=== PATIENT | female | born 1965 | race Caucasian/White ===

== ENCOUNTER → 2016-11-04 | Outpatient (CLI) | payer OTHER ==
[2016-11-04 09:34] LABS: HEMOGLOBIN 13.5 g/dL (12.0-15.5); HGB HCT DIFFERENCE 0.5; MEAN CORPUSCULAR HEMOGLOBIN 28.7 pg (27.0-33.4); MEAN CORPUSCULAR HGB CONC 33.6 g/dL (32.0-36.0); MEAN CORPUSCULAR VOLUME 85 fl (80-97); RED BLOOD COUNT 4.69 10^6/uL (3.72-5.28); RED CELL DISTRIBUTION WIDTH 13.9 % (11.5-14.0); WHITE BLOOD COUNT 8.9 10^3/uL (4.0-10.5)
[2016-11-04 10:12] LABS: ALANINE AMINOTRANSFERASE 30 U/L (9-52); ALBUMIN 4.1 g/dL (3.5-5.0); ALKALINE PHOSPHATASE 94 U/L (38-126); ANION GAP 12 (5-19); ASPARTATE AMINO TRANSFERASE 26 U/L (14-36); BILIRUBIN,TOTAL 0.6 mg/dL (0.2-1.3); BLOOD UREA NITROGEN 11 mg/dL (7-20); CALCIUM 9.8 mg/dL (8.4-10.2); CARBON DIOXIDE 23 mmol/L (22-30); CHLORIDE 107 mmol/L (98-107); CHOLESTEROL 185.81 mg/dL (0-200); CREATININE RESULT 0.52 mg/dL (0.52-1.25); Direct HDL 47 mg/dL (>40); GLUCOSE 187 mg/dL (75-110); POTASSIUM 4.1 mmol/L (3.6-5.0); SODIUM 141.7 mmol/L (137-145); TOTAL PROTEIN 7.1 g/dL (6.3-8.2); TRIGLYCERIDES 149 mg/dL (<150)
[2016-11-04 10:23] LABS: DIRECT LDL 117 mg/dL (<100)
== END ==
LOC: OD 07:45
PROVIDERS: ATTEND Nurse Practitioner Family
DX: E55.9 Vitamin D deficiency, unspecified (principal); E11.9 Type 2 diabetes mellitus without complications; I10 Essential (primary) hypertension; E78.5 Hyperlipidemia, unspecified; E66.9 Obesity, unspecified; R53.83 Other fatigue
CPT/HCPCS: 36415; 80053; 80061; 82306; 83036; 84443; 85027

== ENCOUNTER 2017-04-25 13:19 | Emergency (ER) | payer OTHER ==
[2017-04-25] MEDS ORDERED: NORMAL SALINE 1000 ML 1,000 ML IV ONE (13:46)
--- NOTE | 2017-04-25 13:47 | ER Document Report ---
ED Medical Screen (RME) - General Chief Complaint: Rib Pain Stated Complaint: SHOULDER PAIN Time Seen by Provider: 04/25/17 13:42 TRAVEL OUTSIDE OF THE [place] IN LAST 30 DAYS: No - HPI Patient complains to provider of: Right upper quadrant pain nausea vomiting diarrhea - Related Data Allergies/Adverse Reactions: No Known Allergies Allergy (Verified 04/25/17 13:35) Past Medical History - Past Medical History Cardiac Medical History: Reports: Hx Hypertension Endocrine Medical History: Reports: Hx Diabetes Mellitus Type 2 Renal/ Medical History: Denies: Hx Peritoneal Dialysis Past Surgical History: Reports: Hx Breast Surgery - cyst removed, Hx Hysterectomy - Immunizations Immunizations up to date: Yes Hx Diphtheria, Pertussis, Tetanus Vaccination: Yes Review of Systems - Review of Systems Gastrointestinal: Abdominal pain Physical Exam - Vital signs Vitals: Temp Pulse Resp BP Pulse Ox 98.5 F 80 18 188/106 H 97 04/25/17 13:32 04/25/17 13:32 04/25/17 13:32 04/25/17 13:32 04/25/17 13:32 Interpretation: Normal - General General appearance: Appears well, Alert - HEENT Head: Normocephalic, Atraumatic Eyes: Normal Pupils: PERRL - Respiratory Respiratory status: No respiratory distress Chest status: Nontender Breath sounds: Normal Chest palpation: Normal - Cardiovascular Rhythm: Regular Heart sounds: Normal auscultation Murmur: No - Abdominal Inspection: Normal Distension: No distension Bowel sounds: Normal Tenderness: Tender - r Upper quadrant Organomegaly: No organomegaly - Back Back: Normal, Nontender - Extremities General upper extremity: Normal inspection, Nontender, Normal color, Normal ROM , Normal temperature General lower extremity: Normal inspection, Nontender, Normal color, Normal ROM , Normal temperature, Normal weight bearing. No: Carlos's sign - Neurological Neuro grossly intact: Yes Cognition: Normal Orientation: AAOx4 [place] Coma Scale Eye Opening: Spontaneous Alexis Coma Scale Verbal: Oriented Alexis Coma Scale Motor: Obeys Commands [place] Coma Scale Total: 15 Speech: Normal Motor strength normal: LUE, RUE, LLE, RLE Sensory: Normal - Psychological Associated symptoms: Normal affect, Normal mood - Skin Skin Temperature: Warm Skin Moisture: Dry Skin Color: Normal Course - Re-evaluation Re-evalutation: 04/25/17 13:47 I have greeted and performed a rapid initial assessment of this patient. A comprehensive ED assessment and evaluation of the patient, analysis of test results and completion of the medical decision making process will be conducted by additional ED providers. - Vital Signs Vital signs: Temp Pulse Resp BP Pulse Ox 98.5 F 80 18 188/106 H 97 04/25/17 13:32 04/25/17 13:32 04/25/17 13:32 04/25/17 13:32 04/25/17 13:32
[2017-04-25 14:07] LABS: ABSOLUTE EOSINOPHILS # (AUTO) 0.1 10^3/uL (0.0-0.6); ABSOLUTE LYMPHOCYTES (AUTO) 1.1 10^3/uL (0.5-4.7); ABSOLUTE MONOCYTES (AUTO) 0.6 10^3/uL (0.1-1.4); ABSOLUTE NEUT (AUTO) 3.7 10^3/uL (1.7-8.2); BASOPHILS % (AUTO) 0.4 % (0-2); EOSINOPHILS % (AUTO) 1.6 % (0-6); HEMATOCRIT 42.6 % (36.0-47.0); HEMOGLOBIN 14.6 g/dL (12.0-15.5); HGB HCT DIFFERENCE 1.2; LYMPHOCYTES % (AUTO) 20.2 % (13-45); MEAN CORPUSCULAR HEMOGLOBIN 28.3 pg (27.0-33.4); MEAN CORPUSCULAR HGB CONC 34.3 g/dL (32.0-36.0); MEAN CORPUSCULAR VOLUME 83 fl (80-97); RED BLOOD COUNT 5.14 10^6/uL (3.72-5.28); RED CELL DISTRIBUTION WIDTH 13.6 % (11.5-14.0); SEGMENTED NEUTROPHILS % (AUTO) 66.8 % (42-78); WHITE BLOOD COUNT 5.5 10^3/uL (4.0-10.5)
--- NOTE | 2017-04-25 14:17 | ER Document Report ---
ED GI/ - General Chief Complaint: Rib Pain Stated Complaint: SHOULDER PAIN Time Seen by Provider: 04/25/17 13:42 Mode of Arrival: Ambulatory Information source: Patient Notes: Patient presents complaining of right upper quadrant abdominal pain for the past 3 days. Patient states pain radiates around to the right upper back area. Patient does complain of nausea and some diarrhea. Patient states pain and diarrhea symptoms are worse after eating. Patient denies any urinary symptoms. She denies any measured fever. TRAVEL OUTSIDE OF THE [place] IN LAST 30 DAYS: No - HPI Patient complains to provider of: Abdominal pain. No: Vaginal bleeding, Vaginal discharge, Vomiting Onset: Other - 3 days Timing/Duration: Persistent Quality of pain: Throbbing Pain Level: 4 Location: RUQ, Right flank Vaginal bleeding (Compared to normal period): None Associated symptoms: Diarrhea, Nausea. denies: Chest pain, Dysuria, Fever, Urinary hesitancy, Urinary frequency, Urinary retention, Vaginal discharge, Vomiting Exacerbated by: Food Relieved by: Denies Similar symptoms previously: No Recently seen / treated by doctor: No - Related Data Allergies/Adverse Reactions: No Known Allergies Allergy (Verified 04/25/17 13:35) Past Medical History - General Information source: Patient - Social History Smoking Status: Never Smoker Chew tobacco use (# tins/day): No Frequency of alcohol use: None Drug Abuse: None Occupation: [employer] Family History: Arthritis, CAD, Hyperlipidemia, Hypertension, Malignancy, Thyroid Disfunction - Past Medical History Cardiac Medical History: Reports: Hx Hypertension Endocrine Medical History: Reports: Hx Diabetes Mellitus Type 2 Renal/ Medical History: Denies: Hx Peritoneal Dialysis Past Surgical History: Reports: Hx Breast Surgery - cyst removed, Hx Hysterectomy - Immunizations Immunizations up to date: Yes Hx Diphtheria, Pertussis, Tetanus Vaccination: Yes Review of Systems - Review of Systems Constitutional: No symptoms reported. denies: Fever, Recent illness EENT: No symptoms reported Cardiovascular: No symptoms reported. denies: Chest pain Respiratory: No symptoms reported. denies: Cough, Short of breath Gastrointestinal: Abdominal pain, Diarrhea, Nausea. denies: Vomiting Genitourinary: Flank pain. denies: Dysuria Female Genitourinary: No symptoms reported. denies: Vaginal discharge, Vaginal bleeding Musculoskeletal: Back pain Skin: No symptoms reported Hematologic/Lymphatic: No symptoms reported Neurological/Psychological: No symptoms reported Physical Exam - Vital signs Vitals: Temp Pulse Resp BP Pulse Ox 98.5 F 80 18 188/106 H 97 04/25/17 13:32 04/25/17 13:32 04/25/17 13:32 04/25/17 13:32 04/25/17 13:32 - General General appearance: Appears well, Alert In distress: None - HEENT Head: Normocephalic, Atraumatic Eyes: Normal Nasal: Normal Mouth/Lips: Normal Mucous membranes: Normal Neck: Normal, Supple. No: Lymphadenopathy - Respiratory Respiratory status: No respiratory distress Chest status: Nontender Breath sounds: Normal. No: Rales, Rhonchi, Stridor, Wheezing Chest palpation: Normal - Cardiovascular Rhythm: Regular Heart sounds: S1 appreciated, S2 appreciated Murmur: No - Abdominal Inspection: Morbidly Obese Distension: No distension Bowel sounds: Normal Tenderness: Tender - RUQ Organomegaly: No organomegaly - Back Back: CVA tenderness - right. No: Vertebra tenderness - Extremities General upper extremity: Normal inspection, Nontender, Normal ROM General lower extremity: Normal inspection, Nontender, Normal ROM - Neurological Neuro grossly intact: Yes Cognition: Normal Alexis Coma Scale Eye Opening: Spontaneous Alexis Coma Scale Verbal: Oriented [place] Coma Scale Motor: Obeys Commands Alexis Coma Scale Total: 15 - Psychological Associated symptoms: Normal affect, Normal mood - Skin Skin Temperature: Warm Skin Moisture: Dry Skin Color: Normal Course - Re-evaluation Re-evalutation: 04/25/17 16:[address] Finch regarding patient presentation and exam findings. Does not recommend any additional diagnostic tests at this time. Patient's abdomen continues soft with mild tenderness to right upper quadrant in the right flank area. No guarding, no concern for peritonitis at this time. 04/25/17 16:16 Discussed worsening signs or symptoms that patient should return immediately for. Patient verbalized understanding and agrees with plan of care. Patient advised that she may have a poorly functioning gallbladder that may need additional studies that her primary doctor can order as an outpatient. Patient presents with abdominal pain without signs of peritonitis or other life- threatening or serious etiology. Patient appears stable for discharge and has been instructed to return immediately if the symptoms worsen in any way for reevaluation. The patient has been instructed to return if the symptoms worsen or change in any way. - Vital Signs Vital signs: Temp Pulse Resp BP Pulse Ox 98.5 F 80 18 188/106 H 97 04/25/17 13:32 04/25/17 13:32 04/25/17 13:32 04/25/17 13:32 04/25/17 13:32 - Laboratory Result Diagrams: 04/25/17 13:57 04/25/17 13:57 Laboratory results interpreted by me: 04/25/17 04/25/17 13:51 13:57 Glucose 144 H AST 44 H ALT 53 H Alkaline Phosphatase 128 H Urine Blood MODERATE H Labs- Entire Visit 04/25/17 04/25/17 04/25/17 13:51 13:57 13:57 WBC 5.5 RBC 5.14 Hgb 14.6 Hct 42.6 MCV 83 MCH 28.3 MCHC 34.3 RDW 13.6 Plt Count 190 Seg Neutrophils % 66.8 Lymphocytes % 20.2 Monocytes % 11.0 Eosinophils % 1.6 Basophils % 0.4 Absolute Neutrophils 3.7 Absolute Lymphocytes 1.1 Absolute Monocytes 0.6 Absolute Eosinophils 0.1 Absolute Basophils 0.0 Sodium 139.3 Potassium 3.7 Chloride 105 Carbon Dioxide 23 Anion Gap 11 BUN 10 Creatinine 0.53 Est GFR ( Amer) > 60 Est GFR (Non-Af Amer) > 60 Glucose 144 H Calcium 9.1 Total Bilirubin 0.8 Direct Bilirubin 0.3 Indirect Bilirubin Not Reportable Neonat Total Bilirubin Not Reportable AST 44 H ALT 53 H Alkaline Phosphatase 128 H Total Protein 7.6 Albumin 4.1 Lipase 77.9 Urine Color STRAW Urine Appearance CLEAR Urine pH 6.0 Ur Specific Wever 1.003 Urine Protein NEGATIVE Urine Glucose (UA) NEGATIVE Urine Ketones NEGATIVE Urine Blood MODERATE H Urine Nitrite NEGATIVE Urine Bilirubin NEGATIVE Urine Urobilinogen NEGATIVE Ur Leukocyte Esterase NEGATIVE Urine WBC (Auto) 0 Urine RBC (Auto) 0 Urine Bacteria (Auto) 2+ Squamous Epi Cells Auto 1 Urine Mucus (Auto) RARE Urine Ascorbic Acid NEGATIVE - Diagnostic Test Radiology reviewed: Reports reviewed Discharge - Discharge Clinical Impression: Hx of essential hypertension Abdominal pain Qualifiers: Abdominal location: right upper quadrant Qualified Code(s): R10.11 - Right upper quadrant pain Condition: Stable Disposition: HOME, SELF-CARE Instructions: Abdominal Pain ([facility]), Antinausea Medication ([facility]), Oral Narcotic Medication ([facility]) Additional Instructions: Return immediately for any new or worsening symptoms Followup with your primary care provider, call tomorrow to make a followup appointment Eat a low fat diet. Prescriptions: Hydrocodone/Acetaminophen [[place] 5-325 Tablet] 1 each PO Q4 PRN #8 tablet PRN Reason: Ondansetron HCl [Zofran 4 mg Tablet] 1 - 2 tab PO Q6 PRN #15 tablet PRN Reason: Forms: Elevated Blood Pressure Referrals: CARLO MONTES DE OCA FNP [Primary Care Provider] - Follow up as needed BECKY MARIN NP [COMMUNITY BASED STAFF] - Follow up tomorrow
[2017-04-25 14:19] LABS: ALANINE AMINOTRANSFERASE 53 U/L (9-52); ALBUMIN 4.1 g/dL (3.5-5.0); ALKALINE PHOSPHATASE 128 U/L (38-126); ANION GAP 11 (5-19); ASPARTATE AMINO TRANSFERASE 44 U/L (14-36); BILIRUBIN,DIRECT 0.3 mg/dL (0.0-0.4); BILIRUBIN,TOTAL 0.8 mg/dL (0.2-1.3); BLOOD UREA NITROGEN 10 mg/dL (7-20); CALCIUM 9.1 mg/dL (8.4-10.2); CARBON DIOXIDE 23 mmol/L (22-30); CHLORIDE 105 mmol/L (98-107); CREATININE RESULT 0.53 mg/dL (0.52-1.25); GLUCOSE 144 mg/dL (75-110); LIPASE 77.9 U/L (23-300); POTASSIUM 3.7 mmol/L (3.6-5.0); SODIUM 139.3 mmol/L (137-145); TOTAL PROTEIN 7.6 g/dL (6.3-8.2)
[2017-04-25 15:22] LABS: APPEARANCE,URINE CLEAR; BILIRUBIN,URINE NEGATIVE (NEGATIVE); GLUCOSE, URINE NEGATIVE (NEGATIVE); KETONES,URINE NEGATIVE (NEGATIVE); LEUKOCYTE ESTERASE,URINE NEGATIVE (NEGATIVE); NITRITE,URINE NEGATIVE (NEGATIVE); PROTEIN,URINE NEGATIVE (NEGATIVE); URINE SPECIFIC GRAVITY 1.003; UROBILINOGEN,URINE NEGATIVE mg/dL (<2.0)
--- NOTE | 2017-04-25 15:36 | RADIOLOGY REPORT (SQ) ---
EXAM DESCRIPTION: U/S ABDOMEN LIMITED W/O DOP COMPLETED DATE/TIME: 04/25/2017 3:26 pm REASON FOR STUDY: ruq pain COMPARISON: None. TECHNIQUE: Dynamic and static grayscale images acquired of the abdomen and recorded on PACS. Additio nal selected color Doppler and spectral images recorded. LIMITATIONS: Body habitus limited exam. FINDINGS: PANCREAS: The head of the pancreas was normal. Body and tail were not able to be seen. LIVER: 18.9 cm. Increased echogenicity. LIVER VASCULATURE: Normal directional flow of the main portal vein and hepatic veins. GALLBLADDER: No stones. Normal wall thickness. No pericholecystic fluid. ULTRASOUND-DETECTED MONTGOMERY'S SIGN: Negative. INTRAHEPATIC DUCTS AND COMMON DUCT: Common bile duct is normal at 3 mm. No intrahepatic ductal dilat ation is present. INFERIOR VENA CAVA: Normal flow. AORTA: The proximal aorta is prominent, measuring 37 mm. The midportion the aorta is normal at 2.3 c m. The distal aorta was obscured by gas. RIGHT KIDNEY: Normal size, 13.7 cm. Normal echogenicity. No solid or suspicious masses. No hydroneph rosis. No calcifications. PERITONEAL AND RIGHT PLEURAL SPACE: No ascites or effusions. OTHER: No other significant findings. IMPRESSION: Fatty infiltration of the liver. Prominence of the proximal aorta. No acute abnormalit y TECHNICAL DOCUMENTATION: JOB ID: [id number] [employer]- All Rights Reserved
[2017-04-25] MEDS ORDERED: ACETAMINOPHEN 325 MG TABLET PO ONE (16:13)
[2017-04-25 16:44] VITALS: BP 193/111
== END 2017-04-25 16:43 | disposition home or self-care (01) ==
LOC: ER 13:19
DX: R10.11 Right upper quadrant pain (principal); I10 Essential (primary) hypertension; R07.81 Pleurodynia; M25.519 Pain in unspecified shoulder; R11.0 Nausea; R19.7 Diarrhea, unspecified
CPT/HCPCS: 99284; 96360; 36415; 83690; 85025; 80053; 81001; 76705; J7030

== ENCOUNTER 2017-10-09 18:31 | Emergency (ER) | payer OTHER | END 2017-10-09 22:35 | disposition left against medical advice (07) | LOC: ER 18:31 | DX: Z53.21 Procedure and treatment not carried out due to patient leaving prior to being seen by health care provider (principal); M25.569 Pain in unspecified knee ==

== ENCOUNTER → 2018-02-18 | Outpatient (CLI) | payer OTHER ==
--- NOTE | 2018-02-18 13:08 | RADIOLOGY REPORT (SQ) ---
EXAM DESCRIPTION: U/S ABDOMEN LIMITED W/O DOP COMPLETED DATE/TIME: 02/18/2018 12:21 pm REASON FOR STUDY: RIGHT UPPER QUADRANT PAIN R10.11 RIGHT UPPER QUADRANT PAIN COMPARISON: 2016. TECHNIQUE: Dynamic and static grayscale images acquired of the abdomen and recorded on PACS. Vanessao oscar selected color Doppler and spectral images recorded. LIMITATIONS: None. FINDINGS: PANCREAS: No masses. No peripancreatic edema or fluid collections. LIVER: Echotexture is coarse with increased echogenicity consistent with fatty infiltration. LIVER VASCULATURE: Normal directional flow of the main portal vein and hepatic veins. GALLBLADDER: No stones. Normal wall thickness. No pericholecystic fluid. ULTRASOUND-DETECTED MONTGOMERY'S SIGN: Negative. INTRAHEPATIC DUCTS AND COMMON DUCT: CBD and intrahepatic ducts normal caliber. No filling defects. INFERIOR VENA CAVA: Normal flow. AORTA: Largely not visualized. No gross aneurysm. RIGHT KIDNEY: Normal size. Normal echogenicity. No solid or suspicious masses. No hydronephrosis. No calcifications. PERITONEAL AND RIGHT PLEURAL SPACE: No ascites or effusions. OTHER: No other significant finding. IMPRESSION: FATTY INFILTRATION OF THE LIVER. OTHERWISE NORMAL RIGHT UPPER QUADRANT ULTRASOUND. TECHNICAL DOCUMENTATION: JOB ID: [id number] [employer]- All Rights Reserved Reading location - IP/workstation name: [email or web address]
== END ==
LOC: RAD 11:35
PROVIDERS: ATTEND Physician Assistant
DX: R10.11 Right upper quadrant pain (principal); K76.89 Other specified diseases of liver
CPT/HCPCS: 76705

== ENCOUNTER 2018-07-31 07:31 | Emergency (ER) | payer OTHER ==
[2018-07-31] MEDS ORDERED: ONDANSETRON HCL INJ/PF 4 MG/2 ML SDV IV ONE (08:05)
[2018-07-31] MEDS ORDERED: FENTANYL CITRATE INJ/PF 100 MCG/2 ML AMPUL IV ONE ×3 (08:05→15:45)
[2018-07-31] MEDS ORDERED: KETOROLAC TROMETHAMINE INJ/PF 30 MG/1 ML SDV IV ONE (08:05)
[2018-07-31] MEDS ORDERED: NORMAL SALINE 1000 ML 1,000 ML IV ONE (08:05)
--- NOTE | 2018-07-31 08:11 | ER Document Report ---
ED GI/ - General Chief Complaint: Nausea/Vomiting Stated Complaint: FLANK/BACK PAIN/VOMITING Time Seen by Provider: 07/31/18 07:57 Mode of Arrival: Ambulatory Information source: Patient Notes: History of Present Illness Time: [ ] Chief Complaint: [flank pain] [ ] History obtained from [patient] 53 years old female presents today with right flank pain radiating to the groin since last night. 2 days ago she had a similar episode and then it went away on its own. Associated with nausea, no vomiting. Denies any diarrhea or constipation. Denies any dysuria frequency or urgency. Denies any fever chills but was sweating last night when the pain came on Symptoms began: [today] Onset: [gradual] Timing: [intermittent] Quality: [``pain] Intensity: [severe] Location: [flank] Migration: [none] Radiation: [Groin] Mechanism: [none] Aggravating factors: [none] Relieving factors: [none] Denies significant traumatic injury Denies weakness, numbness, incontinence Denies IV drug use Denies trouble with urination Review of Systems All other systems negative as reviewed. CONSTITUTIONAL No fever. EYES No eye pain. ENT No URI symptoms, No sore throat, No ear pain. CARDIOVASCULAR No chest pain, No palpitations, No edema. RESPIRATORY No Cough, No SOB, No wheezing. GASTROINTESTINAL No abdominal pain, No diarrhea, No vomiting, No constipation, No melena, No rectal bleeding. GENITOURINARY No UTI symptoms, No bleeding. MUSCULOSKELETAL + flank pain. SKIN No Rash. NEUROLOGIC No Headache, No recent seizures, No paralysis, No parathesias. Physical Exam CONSTITUTIONAL Vital signs reviewed, uncomfortable, Alert and oriented X 3. Appeared to be in moderate to severe discomfort. Obesity HEAD Atraumatic, Normal cephalic. EYES No discharge from eyes, Sclera are not injected, Extraocular muscles intact, Conjunctiva are normal. ENT Ears normal to inspection, Nose examination normal, Oropharynx normal, Mucous membranes pink, moist, normal in color. NECK Normal ROM, No jugular venous distention, No meningeal signs, No carotid bruit. RESPIRATORY/CHEST Chest is non-tender, Breath sounds normal, No respiratory distress. CARDIOVASCULAR RRR, Heart sounds normal. ABDOMEN Abdomen is sharply tender over the right upper quadrant with slight rebound tenderness., No masses, Bowel sounds normal, No distension, No peritoneal signs. BACK Sharp right flank tenderness noted. Normal inspection. no focal bony tenderness, no CVA tenderness, no soft tissue tenderness, negative straight leg test bilaterally, bilateral 2+ knee deep tendon reflexes. UPPER EXTREMITY Inspection normal, No cyanosis/clubbing/edema, 2+ radial pulses. LOWER EXTREMITY Inspection normal, No cyanosis/clubbing/edema, 2+ femoral pulses. NEURO Motor exam normal, Sensory exam normal. SKIN Skin is warm and dry, No rash. PSYCHIATRIC Normal affect. TRAVEL OUTSIDE OF THE [place] IN LAST 30 DAYS: No - HPI Notes: 07/31/18 08:11 Dictated - Related Data Allergies/Adverse Reactions: No Known Allergies Allergy (Verified 04/25/17 13:35) Past Medical History - Social History Smoking Status: Never Smoker Frequency of alcohol use: None Drug Abuse: None Lives with: Family Family History: Arthritis, CAD, Hyperlipidemia, Hypertension, Malignancy, Thyroid Disfunction - Past Medical History Cardiac Medical History: Reports: Hx Hypertension Endocrine Medical History: Reports: Hx Diabetes Mellitus Type 2 Renal/ Medical History: Denies: Hx Peritoneal Dialysis Past Surgical History: Reports: Hx Breast Surgery - cyst removed, Hx Hysterectomy - Immunizations Immunizations up to date: Yes Hx Diphtheria, Pertussis, Tetanus Vaccination: Yes Review of Systems - Review of Systems Notes: Dictated Physical Exam - Vital signs Vitals: Temp Pulse Resp BP Pulse Ox 97.8 F 73 18 160/94 H 95 07/31/18 07:35 07/31/18 07:35 07/31/18 07:35 07/31/18 07:35 07/31/18 07:35 - Notes Notes: Dictated Course - Re-evaluation Re-evalutation: 07/31/18 12:18 Surgical list was called, consulted, he is to see the patient. 07/31/18 13:26 Case was discussed with Dr. Aden in [facility], currently being transferred over there for ERCP - Vital Signs Vital signs: Temp Pulse Resp BP Pulse Ox 97.8 F 73 11 L 106/71 98 07/31/18 07:35 07/31/18 07:35 07/31/18 11:01 07/31/18 11:01 07/31/18 11:01 - Laboratory Result Diagrams: 07/31/18 08:06 07/31/18 08:06 Laboratory results interpreted by me: 07/31/18 07/31/18 07/31/18 08:06 08:06 12:23 WBC 13.6 H Seg Neutrophils % 88.2 H Lymphocytes % 6.3 L Absolute Neutrophils 12.0 H Potassium 5.1 H Creatinine 0.49 L Glucose 351 H Total Bilirubin 4.2 H Direct Bilirubin 3.1 H AST 600 H ALT 480 H Alkaline Phosphatase 350 H Lipase 63759.2 H Urine Glucose (UA) >=500 H Urine Ketones 20 H Urine Urobilinogen 2.0 H Urine Ascorbic Acid 20 H - Diagnostic Test Radiology reviewed: Reports reviewed - CT of the abdomen without contrast shows intrarenal stones Gallbladder ultrasound shows positive for Brock's sign and sludge. Discharge - Discharge Clinical Impression: Acute gallstone pancreatitis, Acute hepatitis Condition: Stable Disposition: [facility] Referrals: GERMAIN ACOSTA PA [Primary Care Provider] - Follow up as needed
[2018-07-31 08:28] LABS: ABSOLUTE LYMPHOCYTES (AUTO) 0.9 10^3/uL (0.5-4.7); ABSOLUTE MONOCYTES (AUTO) 0.7 10^3/uL (0.1-1.4); BASOPHILS % (AUTO) 0.2 % (0-2); EOSINOPHILS % (AUTO) 0.1 % (0-6); HEMATOCRIT 38.4 % (36.0-47.0); HEMOGLOBIN 12.8 g/dL (12.0-15.5); LYMPHOCYTES % (AUTO) 6.3 % (13-45); MEAN CORPUSCULAR HEMOGLOBIN 29.3 pg (27.0-33.4); MEAN CORPUSCULAR HGB CONC 33.4 g/dL (32.0-36.0); MEAN CORPUSCULAR VOLUME 88 fl (80-97); MONOCYTES % (AUTO) 5.2 % (3-13); PLATELET COUNT 270 10^3/uL (150-450); RED BLOOD COUNT 4.37 10^6/uL (3.72-5.28); RED CELL DISTRIBUTION WIDTH 13.9 % (11.5-14.0); SEGMENTED NEUTROPHILS % (AUTO) 88.2 % (42-78); TOTAL CELLS COUNTED % (AUTO) 100 %; WHITE BLOOD COUNT 13.6 10^3/uL (4.0-10.5)
[2018-07-31 08:36] LABS: ALANINE AMINOTRANSFERASE 480 U/L (9-52); ALBUMIN 4.3 g/dL (3.5-5.0); ALKALINE PHOSPHATASE 350 U/L (38-126); ANION GAP 15 (5-19); ASPARTATE AMINO TRANSFERASE 600 U/L (14-36); BILIRUBIN,DIRECT 3.1 mg/dL (0.0-0.4); BILIRUBIN,TOTAL 4.2 mg/dL (0.2-1.3); BLOOD UREA NITROGEN 14 mg/dL (7-20); CALCIUM 9.4 mg/dL (8.4-10.2); CARBON DIOXIDE 24 mmol/L (22-30); CHLORIDE 102 mmol/L (98-107); GLUCOSE 351 mg/dL (75-110); POTASSIUM 5.1 mmol/L (3.6-5.0); SODIUM 141.4 mmol/L (137-145); TOTAL PROTEIN 7.3 g/dL (6.3-8.2)
--- NOTE | 2018-07-31 08:43 | RADIOLOGY REPORT (SQ) ---
EXAM DESCRIPTION: CT LTD RENAL STONE PROTOCOL ON COMPLETED DATE/TIME: 07/31/2018 8:24 am REASON FOR STUDY: Right flank pain COMPARISON: Abdominal ultrasound 02/18/2018 TECHNIQUE: CT scan of the abdomen and pelvis performed without intravenous or oral contrast. Images reviewed with lung, soft tissue, and bone windows. Reconstructed coronal and sagittal MPR images revi ewed. All images stored on PACS. All CT scanners at this facility use dose modulation, iterative reconstruction, and/or weight based d osing when appropriate to reduce radiation dose to as low as reasonably achievable (ALARA). [facility]: Dose Right [facility]: CareDose [facility]: Dose Right [facility]: Teradose 4D [facility]: Smart Qubrit RADIATION DOSE: CT Rad equipment meets quality standard of care and radiation dose reduction techniq ues were employed. CTDIvol: 26.2 mGy. DLP: 1557 mGy-cm.mGy. LIMITATIONS: None. FINDINGS: LOWER CHEST: Moderate size retrocardiac hiatal hernia NON-CONTRASTED LIVER, SPLEEN, ADRENALS: Fatty liver. Spleen and adrenals unremarkable. PANCREAS: No masses. No peripancreatic inflammatory changes. GALLBLADDER: Filled with radiodense material likely sludge or stones. No pericholecystic fluid. RIGHT KIDNEY AND URETER: No suspicious masses. Assessment limited by lack of IV contrast. 11 x 8 mm right midpole intrarenal nonobstructive stone, 521 Hounsfield units best shown on coronal image 51. No right ureteral calculi No hydronephrosis or hydroureter. LEFT KIDNEY AND URETER: No suspicious masses. Assessment limited by lack of IV contrast. No signifi cant calcifications. No hydronephrosis or hydroureter. AORTA AND RETROPERITONEUM: No aneurysm. No retroperitoneal masses or adenopathy. BOWEL AND PERITONEAL CAVITY: No CT evidence of bowel obstruction. Colonic diverticuli without CT sig ns of acute diverticulitis APPENDIX: Surgically absent PELVIS, BLADDER, AND ABDOMINAL WALL:No abnormal masses. No free fluid. Bladder normal. Post hysterec armando BONES: No significant findings. OTHER: No other significant finding. IMPRESSION: Post hysterectomy and appendectomy 11 x 8 mm right intrarenal nonobstructive stone Radiopaque sludge or stones in the gallbladder without gross gallbladder wall thickening or perichole cystic fluid COMMENT: Quality ID # [id number]: Final reports with documentation of one or more dose reduction techniques (e.g., Automated exposure control, adjustment of the mA and/or kV according to patient size, use of iterative reconstruction technique) TECHNICAL DOCUMENTATION: JOB ID: [id number] [employer]- All Rights Reserved Reading location - IP/workstation name: [email or web address]
[2018-07-31 09:09] LABS: LIPASE 11473.2 U/L (23-300)
--- NOTE | 2018-07-31 09:54 | RADIOLOGY REPORT (SQ) ---
EXAM DESCRIPTION: U/S ABDOMEN LIMITED W/O DOP COMPLETED DATE/TIME: 07/31/2018 9:36 am REASON FOR STUDY: Right upper quadrant abdominal pain COMPARISON: 02/18/2018 TECHNIQUE: Dynamic and static grayscale images acquired of the abdomen and recorded on PACS. Vanessao oscar selected color Doppler and spectral images recorded. LIMITATIONS: None. FINDINGS: PANCREAS: No masses. Visualized pancreatic duct normal caliber. LIVER: Increased echogenicity ; limited penetration. LIVER VASCULATURE: Normal directional flow of the main portal vein and hepatic veins. GALLBLADDER: No stones. There is gallbladder sludge. Normal wall thickness. No pericholecystic flui d. ULTRASOUND-DETECTED BROCK'S SIGN: Positive. INTRAHEPATIC DUCTS AND COMMON DUCT: The common bile duct is mildly enlarged measuring up to 0.8 cm. There is no obstructing lesion identified. INFERIOR VENA CAVA: Normal flow. AORTA: No aneurysm. RIGHT KIDNEY: Normal size, 11.2 cm. Normal echogenicity. No solid or suspicious masses. No hydroneph rosis. No calcifications. PERITONEAL AND RIGHT PLEURAL SPACE: No ascites or effusions. OTHER: No other significant findings. IMPRESSION: There is gallbladder sludge with a positive sonographic Brock's sign. The common bile duct is mildly enlarged measuring up to 0.8 cm, this is increased compared to prior examination dated 02/18/2018 at which time it measured 0.3 cm. There is no gallbladder wall thickening. No pericholecy stic fluid. Findings are concerning for acute cholecystitis. TECHNICAL DOCUMENTATION: JOB ID: [id number] [employer]- All Rights Reserved Reading location - IP/workstation name: [email or web address]
[2018-07-31] MEDS ORDERED: NORMAL SALINE 1000 ML 1,000 ML IV PRN ×2 (12:38→13:41)
[2018-07-31] MEDS ORDERED: PIPERACILLIN/TAZOBACTAM 3.375 GM VIAL IV ONE ×2 (12:39→15:45)
[2018-07-31 12:56] LABS: APPEARANCE,URINE CLEAR; BILIRUBIN,URINE NEGATIVE (NEGATIVE); GLUCOSE, URINE >=500 mg/dL (NEGATIVE); KETONES,URINE 20 mg/dL (NEGATIVE); LEUKOCYTE ESTERASE,URINE NEGATIVE (NEGATIVE); NITRITE,URINE NEGATIVE (NEGATIVE); PROTEIN,URINE NEGATIVE (NEGATIVE); URINE SPECIFIC GRAVITY 1.028
[2018-07-31 12:57] LABS: COLOR,URINE YELLOW
[2018-07-31] MEDS ORDERED: INSULIN DETEMIR 100 UNIT/ML 3 ML PEN SUBCUT ONE (13:09)
--- NOTE | 2018-07-31 13:37 | PDOC H&P ---
History of Present Illness Admission Date/PCP: TUSHAR SEALS Patient complains of: Abdominal pain History of Present Illness: RILEY PROCTOR is a 53 year old female who presents to the emergency department via ground rescue complaining of abdominal pain nausea one episode of vomiting. Symptoms started yesterday persisted into this morning, primarily with flank pain. She had a similar episode last week when she was in [place]. She went to an urgent care facility and had a CT scan of the abdomen which she said showed nothing pathologic. She was not diagnosed with any condition and was sent home. Was seen in the emergency department at [facility] a year ago complaining of similar symptoms. Workup at that time negative, including gallbladder ultrasound. States she participates in [employer] as recommended by her primary care physician. She reports 2 weeks ago at [facility] she underwent a liver biopsy which showed fatty liver only. Today in the emergency department she was felt to have a kidney stone and had a CT scan of the abdomen and pelvis without oral and IV contrast which showed a nonobstructing right renal pelvis stone, and gallstones but no evidence of pericholecystic fluid or gallbladder wall thickening. A gallbladder ultrasound confirms sludge, common bile duct of 8 mm. Patient's liver function studies were markedly abnormal with a total bilirubin of 4.2 and a lipase level of 11, 473. Patient was advised admission to the surgical service for the presumptive diagnosis of gallstone pancreatitis. Past Medical History Past Medical History: Obesity, hypertension, steatosis of the liver Cardiac Medical History: Reports: Hypertension Endocrine Medical History: Reports: Diabetes Mellitus Type 2 Past Surgical History Past Surgical History: Hysterectomy, liver biopsy, benign biopsy of the breast Past Surgical History: Reports: Hysterectomy Social History Lives with: Family Smoking Status: Never Smoker Frequency of Alcohol Use: Rare Hx Recreational Drug Use: No Hx Prescription Drug Abuse: No Family History Family History: Arthritis, CAD, Hyperlipidemia, Hypertension, Malignancy, Thyroid Disfunction, Other - Strong family history of gallstone pancreatitis, metastatic breast cancer in her mother Parental Family History Reviewed: Yes Children Family History Reviewed: Yes Sibling(s) Family History Reviewed.: Yes Medication/Allergy Home Medications: Atenolol [Tenormin] 12.5 mg PO DAILY 12/16/11 Lisinopril/Hydrochlorothiazide [Zestoretic 20-12.5 Mg Tablet] 1 each PO DAILY Metformin HCl [Glucophage 500 Mg Tablet] 500 mg PO BID 12/16/11 Indomethacin [Indocin 25 Mg Capsule] 25 mg PO TID 14 Days capsule 09/01/14 Indomethacin [Indocin 50 mg Capsule] 50 mg PO TID #15 capsule 09/01/14 Prednisone [Sterapred Ds] 1 pkg PO ASDIR PRN 12 Days tab.ds.pk 09/01/14 Oxycodone HCl/Acetaminophen [Percocet 10-325 Mg Tablet] 1 each PO PRN PRN #20 tablet 04/26/16 Hydrocodone/Acetaminophen [[place] 5-325 Tablet] 1 each PO Q4 PRN #8 tablet Ondansetron HCl [Zofran 4 mg Tablet] 1 - 2 tab PO Q6 PRN #15 tablet 04/25/17 Allergies/Adverse Reactions: No Known Allergies Allergy (Verified 04/25/17 13:35) Review of Systems Constitutional: PRESENT: as per HPI Eyes: ABSENT: visual disturbances Ears: ABSENT: hearing changes Cardiovascular: ABSENT: chest pain, dyspnea on exertion, edema, orthropnea, palpitations Genitourinary: PRESENT: as per HPI, other - Patient reports colonoscopy approximately 5 years ago with diverticulosis only. Neurological: ABSENT: abnormal gait, abnormal speech, confusion, dizziness, focal weakness, syncope Psychiatric: ABSENT: anxiety, depression, homidical ideation, suicidal ideation Physical Exam Vital Signs: Temp Pulse Resp BP Pulse Ox 97.8 F 73 11 L 106/71 98 07/31/18 07:35 07/31/18 07:35 07/31/18 11:01 07/31/18 11:01 07/31/18 11:01 Intake & Output 07/30/18 07/31/18 08/01/18 06:59 06:59 06:59 Intake Total 1000 Output Total 400 Balance 600 Weight 108 kg Results Laboratory Results: 07/31/18 08:06 07/31/18 08:06 07/31/18 07/31/18 07/31/18 08:06 08:06 10:50 WBC 13.6 H RBC 4.37 Hgb 12.8 Hct 38.4 MCV 88 MCH 29.3 MCHC 33.4 RDW 13.9 Plt Count 270 Seg Neutrophils % 88.2 H Lymphocytes % 6.3 L Monocytes % 5.2 Eosinophils % 0.1 Basophils % 0.2 Absolute Neutrophils 12.0 H Absolute Lymphocytes 0.9 Absolute Monocytes 0.7 Absolute Eosinophils 0.0 Absolute Basophils 0.0 Sodium 141.4 Potassium 5.1 H Chloride 102 Carbon Dioxide 24 Anion Gap 15 BUN 14 Creatinine 0.49 L Est GFR ( Amer) > 60 Est GFR (Non-Af Amer) > 60 Glucose 351 H Calcium 9.4 Total Bilirubin 4.2 H AST 600 H ALT 480 H Alkaline Phosphatase 350 H Total Protein 7.3 Albumin 4.3 Lipase 55047.2 H Urine Color Urine Appearance Urine pH Ur Specific [place] Urine Protein Urine Glucose (UA) Urine Ketones Urine Blood Urine Nitrite Ur Leukocyte Esterase Urine WBC (Auto) Urine RBC (Auto) Stool Occult Blood POSITIVE 07/31/18 12:23 WBC RBC Hgb Hct MCV MCH MCHC RDW Plt Count Seg Neutrophils % Lymphocytes % Monocytes % Eosinophils % Basophils % Absolute Neutrophils Absolute Lymphocytes Absolute Monocytes Absolute Eosinophils Absolute Basophils Sodium Potassium Chloride Carbon Dioxide Anion Gap BUN Creatinine Est GFR ( Amer) Est GFR (Non-Af Amer) Glucose Calcium Total Bilirubin AST ALT Alkaline Phosphatase Total Protein Albumin Lipase Urine Color YELLOW Urine Appearance CLEAR Urine pH 6.0 Ur Specific [place] 1.028 Urine Protein NEGATIVE Urine Glucose (UA) >=500 H Urine Ketones 20 H Urine Blood NEGATIVE Urine Nitrite NEGATIVE Ur Leukocyte Esterase NEGATIVE Urine WBC (Auto) 2 Urine RBC (Auto) 5 Stool Occult Blood Impressions: Limited or Localized CT 07/31/18 08:06 IMPRESSION: Post hysterectomy and appendectomy 11 x 8 mm right intrarenal nonobstructive stone Radiopaque sludge or stones in the gallbladder without gross gallbladder wall thickening or pericholecystic fluid Abdomen Ultrasound 07/31/18 08:57 IMPRESSION: There is gallbladder sludge with a positive sonographic Brock's sign. The common bile duct is mildly enlarged measuring up to 0.8 cm, this is increased compared to prior examination dated 02/18/2018 at which time it measured 0.3 cm. There is no gallbladder wall thickening. No pericholecystic fluid. Findings are concerning for acute cholecystitis. Assessment & Plan - Diagnosis (1) Gallstone pancreatitis Is this a current diagnosis for this admission?: Yes Plan: Impression: Acute gallstone pancreatitis; no evidence of sepsis; based on serologic profile, patient has a moderate to high likelihood of retained common bile duct stone. Recommendations: 1. Admit to surgical service, keep n.p.o., IV fluids and intravenous antibiotics; repeat liver function studies and lipase in a.m. 2. No gastroenterologic support or ERCP capabilities for the next 3-4 days. 3. If patient settles down satisfactorily, and is a candidate for laparoscopic cholecystectomy with ERCP, and no retained common bile duct stone found, then no further treatment will be required; conversely if patient does not improve, and laboratory values remain elevated, she may require transfer to tertiary care institution for interval ERCP. All of the above explained to patient; I believe she understands and agrees to proceed. (2) Obesity Is this a current diagnosis for this admission?: Yes (3) Hypertension Is this a current diagnosis for this admission?: Yes (4) Elevated LFTs Is this a current diagnosis for this admission?: Yes (5) Diabetes mellitus Is this a current diagnosis for this admission?: Yes (6) Steatosis of liver Is this a current diagnosis for this admission?: Yes - Time Time Spent: 30 to 50 Minutes Critical Time spent with patient: 15-24 minutes Medications reviewed and adjusted accordingly: Yes Anticipated discharge: Home - Inpatient Certification Based on my medical assessment, after consideration of the patient's comorbidities, presenting symptoms, or acuity I expect that the services needed warrant INPATIENT care.: Yes I certify that my determination is in accordance with my understanding of Medicare's requirements for reasonable and necessary INPATIENT services [42 CFR 412.3e].: Yes Medical Necessity: Need For IV Fluids, Need for Pain Control, Need for IV Antibiotics
[2018-07-31] MEDS ORDERED: KETOROLAC TROMETHAMINE INJ/PF 30 MG/1 ML SDV IV PRN (13:39)
[2018-07-31] MEDS ORDERED: ONDANSETRON HCL INJ/PF 4 MG/2 ML SDV IV PRN (13:39)
[2018-07-31] MEDS ORDERED: INSULIN REG, HUMAN 100 UNIT/ML 3 ML VIAL (PYX) SUBCUT PRN (13:42)
[2018-07-31] MEDS ORDERED: GLUCAGON,HUMAN RECOMB 1 MG INJ IM PRN (13:42)
[2018-07-31] MEDS ORDERED: DEXTROSE 40% GEL 15 GM TUBE PO PRN ×2 (13:42)
[2018-07-31] MEDS ORDERED: DEXTROSE 50%-WATER 25 GM/50 ML DISP.SYRIN IV PRN ×2 (13:42)
[2018-07-31] MEDS ORDERED: CEFAZOLIN 1 GM/D5W RTU 1 GM/50 ML RTUPB IV SCH (14:00)
[2018-07-31 14:11] VITALS: BP 121/77
[2018-07-31] MEDS ORDERED: ACETAMINOPHEN 1,000 MG/100 ML RTUPB IV SCH (18:00)
[2018-07-31] MEDS ORDERED: ACETAMINOPHEN INJ/PF 1000 MG/100 ML SDV IV SCH (18:00)
== END 2018-07-31 15:59 | disposition short-term general hospital (02) ==
LOC: ER 07:31
DX: K85.10 Biliary acute pancreatitis without necrosis or infection (principal); B17.9 Acute viral hepatitis, unspecified; N20.0 Calculus of kidney; R11.0 Nausea; R61 Generalized hyperhidrosis; I10 Essential (primary) hypertension; E11.9 Type 2 diabetes mellitus without complications; R10.811 Right upper quadrant abdominal tenderness; Z79.899 Other long term (current) drug therapy
CPT/HCPCS: 36415; 82962; 83690; 85025; 82272; 80053; 81001; 76705; 76380; J0690; J1815; J3010; J1885; J2405; J7030; J2543; 51701; 96361; 96365; 96368; 96375; 99285

== ENCOUNTER 2018-10-23 07:17 | Emergency (ER) | payer OTHER ==
[2018-10-23 07:27] VITALS: BP 141/89
--- NOTE | 2018-10-23 09:43 | ER Document Report ---
HPI - HPI Patient complains to provider of: left foot pain Time Seen by Provider: 10/23/18 09:21 Onset: Yesterday Onset/Duration: Gradual Quality of pain: Achy Pain Level: 2 Context: Pt presents complaining of left posterior heel pain started yesterday. Patient states area is red and swollen. Patient does admit that she has started working out and has been doing a lot of walking recently. Patient denies any trauma to the area. Associated Symptoms: Other - Left posterior heel pain Exacerbated by: Standing, Movement, Walking Relieved by: Denies Similar symptoms previously: No Recently seen / treated by doctor: No - ROS ROS below otherwise negative: Yes Systems Reviewed and Negative: Yes All other systems reviewed and negative - CONSTITUTIONAL Constitutional: DENIES: Fever, Chills - GASTROINTESTINAL Gastrointestinal: DENIES: Nausea - REPRODUCTIVE Reproductive: DENIES: : - MUSCULOSKELETAL Musculoskeletal: REPORTS: Extremity pain - left heel - DERM Skin Color: Erythema Skin Problems: None Past Medical History - General Information source: Patient - Social History Smoking Status: Never Smoker Chew tobacco use (# tins/day): No Frequency of alcohol use: None Drug Abuse: None Occupation: operations support coordinator Family History: Arthritis, CAD, Hyperlipidemia, Hypertension, Malignancy, Thyroid Disfunction Patient has suicidal ideation: No Patient has homicidal ideation: No - Past Medical History Cardiac Medical History: Reports: Hx Hypertension Endocrine Medical History: Reports: Hx Diabetes Mellitus Type 2 Renal/ Medical History: Denies: Hx Peritoneal Dialysis Past Surgical History: Reports: Hx Breast Surgery - cyst removed, Hx Cholecystectomy - 07/2019, Hx Hysterectomy - Immunizations Immunizations up to date: Yes Hx Diphtheria, Pertussis, Tetanus Vaccination: Yes Vertical Provider Document - CONSTITUTIONAL Agree With Documented VS: Yes Exam Limitations: No Limitations General Appearance: WD/WN, No Apparent Distress - INFECTION CONTROL TRAVEL OUTSIDE OF THE [place] IN LAST 30 DAYS: No - HEENT HEENT: Atraumatic, Normocephalic - NECK Neck: Normal Inspection - RESPIRATORY Respiratory: No Respiratory Distress - CARDIOVASCULAR Pulses: Normal: Dorsalis pedis - MUSCULOSKELETAL/EXTREMETIES Musculoskeletal/Extremeties: MAEW, Tender - Redness to left posterior calcaneus area. Normal Vazquez squeeze test. Retrocalcaneal bursa tender - NEURO Level of Consciousness: Awake, Alert, Appropriate Motor/Sensory: No Motor Deficit Course - Re-evaluation Re-evalutation: 10/23/18 09:37 No concern for septic arthritis. Patient presents with likely bursitis from recent onset of walking activities. Patient encouraged to wear shoes that do not rub this area and to insert heel lifts to help alleviate her symptoms at this time. No concern for tendon rupture. - Vital Signs Vital signs: Temp Pulse Resp BP Pulse Ox 98.8 F 84 16 141/89 H 94 10/23/18 07:22 10/23/18 07:22 10/23/18 07:22 10/23/18 07:22 10/23/18 07:22 Discharge - Discharge Clinical Impression: Retrocalcaneal bursitis Qualifiers: Laterality: left Qualified Code(s): M77.52 - Other enthesopathy of left foot Condition: Stable Disposition: HOME, SELF-CARE Instructions: Bursitis ([facility]) Additional Instructions: Return immediately for any new or worsening symptoms Followup with your primary care provider, call tomorrow to make a followup appointment Follow-up with orthopedics for any persistent pain or problems Wear shoes that do not rub against this area Scale back your walking activities until symptoms have resolved. Insert a heel lift to help with symptoms Prescriptions: Diclofenac Sodium [Voltaren] 1 applic TP TID PRN #100 gel..gm. PRN Reason: Tramadol HCl [Ultram 50 mg Tablet] 50 mg PO ASDIR PRN #12 tablet PRN Reason: Forms: Return to Work Referrals: ZHANG BELL DPM [ACTIVE STAFF] - Follow up as needed MAURICE LE DPM [ACTIVE STAFF] - Follow up as needed
== END 2018-10-23 09:48 | disposition home or self-care (01) ==
LOC: ER 07:17
DX: M77.52 Other enthesopathy of left foot and ankle (principal); M79.672 Pain in left foot; E11.9 Type 2 diabetes mellitus without complications; I10 Essential (primary) hypertension
CPT/HCPCS: 99283

== ENCOUNTER 2019-04-01 07:39 | Emergency (ER) | payer OTHER ==
--- NOTE | 2019-04-01 09:23 | ER Document Report ---
Entered by MEKA JJ SCRIBE 04/01/19 0835 Acting as scribe for:GINA HURST MD ED Extremity Problem, Upper - General Chief Complaint: Shoulder Pain Stated Complaint: FALL/SHOULDER PAIN Time Seen by Provider: 04/01/19 08:24 Primary Care Provider: [facility]Provider [facility]] - Follow up in 3-5 days ONIEL BARNES MD [Primary Care Provider] - Follow up as needed Notes: Patient is a 53-year-old female presenting to the emergency department after a fall with associated shoulder pain. Patient states that on 03/27 she was in the tub, fell out when trying to step out and landed on her right shoulder. Patient states that the day of and the day after it was just sore and stiff. Patient states that on 03/29 she began having pain, it has remained constant since then. Patient states that the pain radiates into her arm, neck, back. TRAVEL OUTSIDE OF THE [place] IN LAST 30 DAYS: No - Related Data Allergies/Adverse Reactions: No Known Allergies Allergy (Verified 04/01/19 07:40) Past Medical History - General Information source: Patient - Social History Smoking Status: Never Smoker Cigarette use (# per day): No Chew tobacco use (# tins/day): No Frequency of alcohol use: None Drug Abuse: None Family History: Arthritis, CAD, Hyperlipidemia, Hypertension, Malignancy, Thyroid Disfunction - Past Medical History Cardiac Medical History: Reports: Hx Hypertension Endocrine Medical History: Reports: Hx Diabetes Mellitus Type 2 Past Surgical History: Reports: Hx Breast Surgery - cyst removed, Hx Cholecystectomy - 07/2019, Hx Hysterectomy - Immunizations Immunizations up to date: Yes Hx Diphtheria, Pertussis, Tetanus Vaccination: Yes Review of Systems - Review of Systems Constitutional: No symptoms reported EENT: No symptoms reported Cardiovascular: No symptoms reported Respiratory: No symptoms reported Gastrointestinal: No symptoms reported Genitourinary: No symptoms reported Female Genitourinary: No symptoms reported Musculoskeletal: See HPI, Back pain, Other - Right shoulder pain Skin: No symptoms reported Hematologic/Lymphatic: No symptoms reported Neurological/Psychological: No symptoms reported -: Yes All other systems reviewed and negative Physical Exam - Vital signs Vitals: Temp Pulse Resp BP Pulse Ox 97.8 F 96 16 178/105 H 97 04/01/19 07:42 04/01/19 07:42 07/18/19 07:42 04/01/19 07:42 04/01/19 07:42 - Notes Notes: Physical Exam: General: Alert, appears well. HEENT: Normocephalic. Atraumatic. PERRL. Extraocular movements intact. Oropharynx clear. Neck: Clavicle tenderness to palpation. Trapezius musculature tenderness to palpation. Respiratory: No respiratory distress. Clear and equal breath sounds bilaterally. Cardiovascular: Regular rate and rhythm. Back: Lumbar musculature tenderness to palpation. Abdominal: Normal Inspection. Non-tender. No distension. Normal Bowel Sounds. Back: Non-tender. No deformity or step off. Extremities: Moves all four extremities. Upper extremities: Right shoulder pain with active abduction action, passive does not inhibit much pain. Pain with adduction.Limited ROM due to right shoulder injury. Lower extremities: Normal inspection. No edema. Normal ROM. Neurological: Normal cognition. AAOx4. Normal speech. Psychological: Normal affect. Normal Mood. Skin: Warm. Dry. Normal color. Course - Re-evaluation Re-evalutation: 04/01/19 11:43 The PCT placed a sling on the patient's right shoulder. It fits well. Provides support and allows her to let the shoulder muscles relax. - Vital Signs Vital signs: Temp Pulse Resp BP Pulse Ox 98.1 F 85 16 138/95 H 99 04/01/19 11:25 04/01/19 11:25 04/01/19 11:25 04/01/19 11:25 04/01/19 11:25 - Diagnostic Test Radiology reviewed: Image reviewed, Reports reviewed - X-ray of the right shoulder does not show acute posttraumatic changes. There does appear to be a calcification in the rotator cuff. Discharge - Discharge Clinical Impression: Injury of right rotator cuff Qualifiers: Encounter type: initial encounter Qualified Code(s): S46.001A - Unspecified injury of muscle(s) and tendon(s) of the rotator cuff of right shoulder, initial encounter Condition: Stable Disposition: HOME, SELF-CARE Additional Instructions: Rotator Cuff Injury You have PROBABLY injured your rotator cuff. This is a group of tendons that form a "cuff" around the upper arm bone. This usually results from an injury that tears the tendons, but sometimes the rotator cuff simply "wears out." If the rotator cuff is only partially torn, time and protection may allow it to heal. This may take several weeks. If the shoulder doesn't become free of pain, surgery may be considered. A complete tear of the rotator cuff requires surgery. If the shoulder is too painful to move, we may need to recheck in a few days. An arthrogram (injecting dye into the joint) or MR scan may be necessary to resolve the question. Initial treatment includes cold packs and a sling to rest the shoulder. We usually prescribe antiinflammatory medication. Be sure to keep your follow up appointment. Call us any time if there's severe pain, numbness, or loss of function. Use the sling to support the weight of your arm and allow your shoulder muscles to relax. Take ibuprofen 800 mg every 8 hours, or Aleve 2 tablets every 12 hours. Take the pain medication as prescribed if needed. Call [facility] for Surgery today to schedule an appointment in the next several days for further evaluation. RETURN TO THE EMERGENCY ROOM IF ANY NEW OR WORSENING SYMPTOMS. Prescriptions: Hydrocodone/Acetaminophen [[place] 5-325 mg Tablet] 1 tab PO Q4 PRN #12 tablet PRN Reason: Referrals: ONIEL BARNES MD [Primary Care Provider] - Follow up as needed [facility] [Provider Group] - Follow up in 3-5 days Scribe Attestation: 04/01/19 09:32 I personally performed the services described in the documentation, reviewed and edited the documentation which was dictated to the scribe in my presence, and it accurately records my words and actions. I personally performed the services described in the documentation, reviewed and edited the documentation which was dictated to the scribe in my presence, and it accurately records my words and actions.
--- NOTE | 2019-04-01 09:50 | RADIOLOGY REPORT (SQ) ---
EXAM DESCRIPTION: SHOULDER RIGHT 2 OR MORE VIEWS COMPLETED DATE/TIME: 04/01/2019 9:36 am REASON FOR STUDY: Fell out of tub onto shoulder, pain with movement COMPARISON: None. NUMBER OF VIEWS: Three views. TECHNIQUE: Internal rotation, external rotation, and Y view images acquired of the right shoulder. LIMITATIONS: None. FINDINGS: MINERALIZATION: Normal. BONES: No acute fracture. No worrisome bone lesions. JOINTS: No dislocation. VISUALIZED LUNGS AND RIBS: No pneumothorax. No rib fracture. SOFT TISSUES: Small calcific density projected over the glenohumeral joint that may the secondary to calcification within the rotator cuff. OTHER: No other significant finding. IMPRESSION: No acute posttraumatic changes. Possible calcification within the rotator cuff. TECHNICAL DOCUMENTATION: JOB ID: [id number] [email or web address]- All Rights Reserved Reading location - IP/workstation name: [email or web address]
[2019-04-01 11:28] VITALS: BP 138/95
== END 2019-04-01 11:28 | disposition home or self-care (01) ==
LOC: ER 07:39
DX: S46.001A Unspecified injury of muscle(s) and tendon(s) of the rotator cuff of right shoulder, initial encounter (principal); M25.511 Pain in right shoulder; M79.601 Pain in right arm; M54.2 Cervicalgia; M54.9 Dorsalgia, unspecified; W19.XXXA Unspecified fall, initial encounter; I10 Essential (primary) hypertension; E11.9 Type 2 diabetes mellitus without complications
CPT/HCPCS: 99283

== ENCOUNTER → 2020-01-28 | Outpatient (CLI) | payer OTHER ==
[2020-01-28 08:41] LABS: ABSOLUTE EOSINOPHILS # (AUTO) 0.1 10^3/uL (0.0-0.6); ABSOLUTE LYMPHOCYTES (AUTO) 1.7 10^3/uL (0.5-4.7); ABSOLUTE MONOCYTES (AUTO) 0.5 10^3/uL (0.1-1.4); ABSOLUTE NEUT (AUTO) 5.6 10^3/uL (1.7-8.2); BASOPHILS % (AUTO) 0.4 % (0-2); HEMATOCRIT 40.1 % (36.0-47.0); HEMOGLOBIN 13.8 g/dL (12.0-15.5); LYMPHOCYTES % (AUTO) 21.1 % (13-45); MEAN CORPUSCULAR HEMOGLOBIN 29.6 pg (27.0-33.4); MEAN CORPUSCULAR HGB CONC 34.4 g/dL (32.0-36.0); MEAN CORPUSCULAR VOLUME 86 fl (80-97); MONOCYTES % (AUTO) 6.6 % (3-13); PLATELET COUNT 220 10^3/uL (150-450); RED BLOOD COUNT 4.67 10^6/uL (3.72-5.28); RED CELL DISTRIBUTION WIDTH 13.9 % (11.5-14.0); SEGMENTED NEUTROPHILS % (AUTO) 70.9 % (42-78); TOTAL CELLS COUNTED % (AUTO) 100 %; WHITE BLOOD COUNT 7.9 10^3/uL (4.0-10.5)
[2020-01-28 08:57] LABS: ALBUMIN 4.2 g/dL (3.5-5.0); ALKALINE PHOSPHATASE 93 U/L (38-126); ANION GAP 11 (5-19); ASPARTATE AMINO TRANSFERASE 35 U/L (14-36); BILIRUBIN,DIRECT 0.1 mg/dL (0.0-0.4); BILIRUBIN,TOTAL 0.7 mg/dL (0.2-1.3); BLOOD UREA NITROGEN 15 mg/dL (7-20); CALCIUM 9.3 mg/dL (8.4-10.2); CARBON DIOXIDE 24 mmol/L (22-30); CHLORIDE 101 mmol/L (98-107); CHOLESTEROL 210.44 mg/dL (0-200); GLUCOSE 281 mg/dL (75-110); POTASSIUM 4.5 mmol/L (3.6-5.0); TOTAL PROTEIN 7.3 g/dL (6.3-8.2); TRIGLYCERIDES 190 mg/dL (<150)
[2020-01-28 09:08] LABS: DIRECT LDL 139 mg/dL (<100)
== END ==
LOC: OD 07:14
PROVIDERS: ATTEND Physician Assistant
DX: I10 Essential (primary) hypertension (principal); E78.5 Hyperlipidemia, unspecified; E11.65 Type 2 diabetes mellitus with hyperglycemia
CPT/HCPCS: 36415; 80053; 80061; 83036; 85025

== ENCOUNTER 2020-03-03 20:41 | Emergency (ER) | payer OTHER ==
--- NOTE | 2020-03-03 21:33 | ER Document Report ---
HPI - HPI Time Seen by Provider: 03/03/20 21:27 Pain Level: 5 Notes: 54-year-old female patient presented to the emergency department chief complaint of right foot pain. Patient reports 2 days ago she fell and tripped down 3 steps. She is ambulatory on her foot but states it is painful. She denies any history of previous trauma to this area. - ROS ROS below otherwise negative: Yes Systems Reviewed and Negative: Yes All other systems reviewed and negative - REPRODUCTIVE Reproductive: DENIES: : - MUSCULOSKELETAL Musculoskeletal: REPORTS: Extremity pain Past Medical History - General Information source: Patient - Social History Smoking Status: Never Smoker Chew tobacco use (# tins/day): No Frequency of alcohol use: None Drug Abuse: None Family History: Arthritis, CAD, Hyperlipidemia, Hypertension, Malignancy, Thyroid Disfunction Patient has homicidal ideation: No - Past Medical History Cardiac Medical History: Reports: Hx Hypertension Endocrine Medical History: Reports: Hx Diabetes Mellitus Type 2 Renal/ Medical History: Denies: Hx Peritoneal Dialysis Past Surgical History: Reports: Hx Breast Surgery - cyst removed, Hx Cholecystectomy - 07/2019, Hx Hysterectomy - Immunizations Immunizations up to date: Yes Hx Diphtheria, Pertussis, Tetanus Vaccination: Yes Vertical Provider Document - CONSTITUTIONAL Notes: PHYSICAL EXAMINATION: GENERAL: Well-appearing, well-nourished and in no acute distress. HEAD: Atraumatic, normocephalic. EYES: Pupils equal round extraocular movements intact, conjunctiva are normal. ENT: Nares patent NECK: Normal range of motion LUNGS: No respiratory distress Musculoskeletal: Limited range of motion to right foot, ecchymosis noted near the base of the third through fifth toes. Strong dorsalis pedis pulse, cap refill less than 3 seconds, normal sensation distal to injury. NEUROLOGICAL: Normal speech, normal gait. PSYCH: Normal mood, normal affect. SKIN: Warm, Dry, normal turgor, no rashes or lesions noted. - INFECTION CONTROL TRAVEL OUTSIDE OF THE [place] IN LAST 30 DAYS: No Course - Re-evaluation Re-evalutation: Foot X-Ray 03/03/20 21:31 IMPRESSION: No evidence of acute displaced fracture of the foot. No acute fracture noted. Patient will be placed in a Chance wrap and offered crutches. Patient is in agreement with this plan. Patient will follow-up with her primary care provider or orthopedics if not improving. - Vital Signs Vital signs: Temp Pulse Resp BP Pulse Ox 97.5 F 76 16 140/86 H 97 03/03/20 21:26 03/03/20 20:49 03/03/20 20:49 03/03/20 20:49 03/03/20 20:49 Procedures - Immobilization Right foot Pre-Proc Neuro Vasc Exam: Normal Immobilizer type: Chance wrap Performed by: Provider, PCT Post-Proc Neuro Vasc Exam: Normal Alignment checked and good: Yes Discharge - Discharge Clinical Impression: Foot pain, Fall Condition: Stable Disposition: HOME, SELF-CARE Additional Instructions: Contusion Your injury has resulted in a contusion -- a crushing of the deep tissues. No injury to important structures was detected during the physician's exam. Contusions vary in the amount of pain they cause, and in the length of time required for healing. Typically, the area will become bruised, and will remain painful to touch for two or three weeks. However, most patients are back to working and playing within a few days. After the initial period of rest and cold-packs, your symptoms (together with the doctor's recommendations) will determine how rapidly you can get back to full activity. Usually this means "do what feels okay, but don't do things that hurt." If re-examination was recommended, it's important to follow up as instructed. Call the doctor or return any time if pain increases, if swelling b ecomes severe, if you develop numbness or weakness in an injured extremity, or if any other alarming symptoms occur. Ice & Elevation Apply ice packs frequently against the painful area. Many different schedules are recommended, such as "20 minutes on, 20 minutes off" or "one hour ice, two hours rest." If you need to work, you may need to go longer between ice treatments. You should plan to have the area ice packed AT LEAST one-fourth of the time. The ice should be applied over the wrap, tape, or splint, or over a layer of cloth -- not directly against the skin. Some ice bags have a built-in cloth and can be put directly on the skin. Your injured part should be elevated as much as possible over the next 48 hours. Try to keep the injury above the level of the heart. Avoid use of the injured area. Elevation and rest will decrease the swelling. Ibuprofen Ibuprofen is an excellent, safe drug for pain control. In addition, it has potent antiinflammatory effects which are beneficial, especially in the treatment of injuries, arthritis, or tendonitis. It's best to take ibuprofen with food. Persons with ulcer disease or allergy to aspirin should notify their physician of this before taking ibuprofen. Take the medication exactly as prescribed. Don't take additional doses unless instructed to do so by your doctor. If you develop wheezing, shortness of breath, hives, faintness, stomach pain, vomiting, or dark black stools, return for re-evaluation at once. The x-rays were negative for any fracture or dislocation. Please take ibuprofen [id number] as directed to help with pain and inflammation. Referrals: GERMAIN AHUMADA PA-C [Primary Care Provider] - Follow up as needed
--- NOTE | 2020-03-03 22:05 | RADIOLOGY REPORT (SQ) ---
CLINICAL INDICATION: fall pain at 3-5th toes. . TECHNIQUE: 3 view(s) were obtained of the right foot. COMPARISON: None. FINDINGS: No acute displaced fracture is identified of the foot. Alignment appears anatomic. Joint spaces are within normal limits for age. Soft tissue swelling. Anterior and posterior calcaneal spur. IMPRESSION: No evidence of acute displaced fracture of the foot.
[2020-03-04 00:03] VITALS: BP 142/95
== END 2020-03-04 00:03 | disposition home or self-care (01) ==
LOC: ER 20:41
DX: M79.671 Pain in right foot (principal); W10.9XXA Fall (on) (from) unspecified stairs and steps, initial encounter; I10 Essential (primary) hypertension; E11.9 Type 2 diabetes mellitus without complications; Z90.49 Acquired absence of other specified parts of digestive tract
CPT/HCPCS: 99283

== ENCOUNTER 2020-03-28 21:02 | Emergency (ER) | payer OTHER ==
[2020-03-28 21:07] VITALS: BP 159/88
[2020-03-28] MEDS ORDERED: OXYCODONE-ACETAMINOPHEN 5-325 MG TABLET PO ONE (21:32)
--- NOTE | 2020-03-28 21:34 | ER Document Report ---
ED Medical Screen (RME) - General Chief Complaint: Abscess Stated Complaint: ABSCESS ON BACK Time Seen by Provider: 03/28/20 21:29 Primary Care Provider: GERMAIN AHUMADA PA-C [Primary Care Provider] - Follow up as needed Mode of Arrival: Ambulatory Information source: Patient Notes: 54-year-old female presents to ED for abscess to her mid upper back. She states it is been there for about a week and a half. She states it is progressively gotten worse. There is a large abscess about at her bra line. She is alert oriented respirations regular nonlabored speaking in full sentences. She states she has had a cholecystectomy or hysterectomy and a cyst removed from her breast. She states she has had abscesses in the past but never anything is because this. She does not smoke drink or use any illicit drugs. She does live with her family. Her family is here to drive her home. I have given her 1 Percocet in the triage area. I have greeted and performed a rapid initial assessment of this patient. A comprehensive ED assessment and evaluation of the patient, analysis of test results and completion of medical decision making process will be conducted by an additional ED providers. TRAVEL OUTSIDE OF THE [place] IN LAST 30 DAYS: No - Related Data Allergies/Adverse Reactions: No Known Allergies Allergy (Verified 04/01/19 07:40) Past Medical History - Past Medical History Cardiac Medical History: Reports: Hx Hypertension Endocrine Medical History: Reports: Hx Diabetes Mellitus Type 2 Renal/ Medical History: Denies: Hx Peritoneal Dialysis Past Surgical History: Reports: Hx Breast Surgery - cyst removed, Hx Cholecystectomy - 07/2019, Hx Hysterectomy - Immunizations Immunizations up to date: Yes Hx Diphtheria, Pertussis, Tetanus Vaccination: Yes Physical Exam - Vital signs Vitals: Temp Pulse Resp BP Pulse Ox 99.1 F 71 20 159/88 H 97 03/28/20 21:06 03/28/20 21:06 03/28/20 21:06 03/28/20 21:06 03/28/20 21:06 Course - Vital Signs Vital signs: Temp Pulse Resp BP Pulse Ox 99.1 F 71 20 159/88 H 97 03/28/20 21:06 03/28/20 21:06 03/28/20 21:06 03/28/20 21:06 03/28/20 21:06 Doctor's Discharge - Discharge Referrals: GERMAIN AHUMADA PA-C [Primary Care Provider] - Follow up as needed
== END 2020-03-29 06:32 | disposition left against medical advice (07) ==
LOC: ER 21:02
DX: L02.212 Cutaneous abscess of back [any part, except buttock and flank] (principal); E11.9 Type 2 diabetes mellitus without complications; I10 Essential (primary) hypertension; Z53.20 Procedure and treatment not carried out because of patient's decision for unspecified reasons
CPT/HCPCS: 99281

== ENCOUNTER → 2020-07-20 | Outpatient (CLI) | payer OTHER ==
--- NOTE | 2020-07-20 11:19 | WOMENS IMAGING REPORT ---
EXAM DESCRIPTION: BILAT SCREENING MAMMO W/CAD IMAGES COMPLETED DATE/TIME: 07/20/2020 7:07 am REASON FOR STUDY: Z12.31 ENCNTR SCREEN MAMMOGRAM FOR MALIGNANT NEOPLASM OF BREAST Z12.31 ENCNTR SCR EEN MAMMOGRAM FOR MALIGNANT NEOPLASM OF JOSE ALEJANDRO COMPARISON: 2014 EXAM PARAMETERS: Standard craniocaudal and mediolateral oblique views of each breast recorded using digital acquisition. Read with the assistance of CAD. .[facility] - [employer] Records Units Supervisor Version 9.2 LIMITATIONS: None. FINDINGS: No suspicious masses, suspicious calcifications or architectural distortion. No areas of c oncern. IMPRESSION: NEGATIVE MAMMOGRAM. BIRADS 1 BREAST DENSITY: a. The breasts are almost entirely fatty. BIRAD: ASSESSMENT: 1 NEGATIVE RECOMMENDATION: ROUTINE SCREENING Please continue yearly bilateral screening mammography/tomosynthesis in July 2021 COMMENT: The patient has been notified of the results by letter per [place] requirements. Additional no tification policies are in place for contacting patient with suspicious or incomplete findings. Quality ID #[id number]: The [employer] recommends an annual screening mammogram for women aged 40 years or over. This facility utilizes a reminder system to ensure that all patients receive reminder letters, and/or direct phone calls for appointments. This includes reminders for routine scr eening mammograms, diagnostic mammograms, or other Breast Imaging Interventions when appropriate. Th is patient will be placed in the appropriate reminder system. TECHNICAL DOCUMENTATION: FINDING NUMBER: (1) ASSESSMENT: (1) JOB ID: [id number] 2010 [employer]- All Rights Reserved Reading location - IP/workstation name: [email or web address]
== END ==
LOC: WI 06:49
PROVIDERS: ATTEND Physician Assistant
DX: Z12.31 Encounter for screening mammogram for malignant neoplasm of breast (principal)
CPT/HCPCS: 77067